=== PATIENT | female | born 1990 | race Caucasian/White ===

== ENCOUNTER 2017-04-06 22:43 | Emergency (ER) | payer MEDICAID ==
[~2017-04-06] VITALS: Ht 152.4 cm; Wt 70.8 kg
[~2017-04-06 22:43] MED LIST: QUET100T4 PO; [UNRECOGNIZED DRUG - CODE] PO
[2017-04-06] MEDS ORDERED: LURA60TA PO (23:01)
[2017-04-06] MEDS ORDERED: LAMO100T5 PO (23:01)
[2017-04-06] MEDS ORDERED: HYDR50TA13 PO (23:01)
[2017-04-06] MEDS ORDERED: CYCLOBENZAPRINE 10 MG TABLET ONE (23:29)
[2017-04-06] MEDS ORDERED: KETOROLAC 30 MG/1 ML ONE (23:29)
[2017-04-06] MEDS ORDERED: KETOROLAC 30 MG/1 ML IM ONE (23:30)
[2017-04-06] MEDS ORDERED: CYCLOBENZAPRINE 10 MG TABLET PO SCH (23:30)
[2017-04-07 00:18] VITALS: BP 131/74
== END 2017-04-07 00:20 | disposition home or self-care (01) ==
LOC: ED 04-07 00:14
DX: M62.838 Other muscle spasm (principal); R07.9 Chest pain, unspecified
CPT/HCPCS: 71020; 93005; 99284

== ENCOUNTER 2017-10-07 22:25 | Emergency (ER) | payer MEDICAID ==
[~2017-10-07] VITALS: Ht 152.4 cm; Wt 75.7 kg
[~2017-10-07 22:25] MED LIST changes: +HYDR50TA13 PO; +LAMO100T5 PO; +LURA60TA PO
[2017-10-07] MEDS ORDERED: ONDANSETRON ODT 4 MG ONE ×2 (22:42→23:31)
[2017-10-07] MEDS ORDERED: ONDANSETRON ODT 4 MG PO ONE (23:00)
[2017-10-07 23:46] VITALS: BP 113/77
[2017-10-07] MEDS ORDERED: KETOROLAC 30 MG/1 ML ONE (23:51)
[2017-10-07] MEDS ORDERED: SUMATRIPTAN 6MG/0.5ML SQ ONE (23:51)
[2017-10-07] MEDS ORDERED: PROMETHAZINE 25 MG/ML, 1ML ONE (23:51)
[2017-10-08] MEDS ORDERED: PROMETHAZINE 25 MG/ML, 1ML IM ONE
[2017-10-08] MEDS ORDERED: SUMATRIPTAN 6MG/0.5ML SQ ONE
[2017-10-08] MEDS ORDERED: KETOROLAC 30 MG/1 ML IM ONE
== END 2017-10-08 00:54 | disposition home or self-care (01) ==
LOC: ED 23:38
DX: G43.009 Migraine without aura, not intractable, without status migrainosus (principal); F31.9 Bipolar disorder, unspecified; F43.10 Post-traumatic stress disorder, unspecified; F41.1 Generalized anxiety disorder; F98.8 Other specified behavioral and emotional disorders with onset usually occurring in childhood and adolescence
CPT/HCPCS: 96372; 99284; J1885; J2550; J3030

== ENCOUNTER 2019-05-18 06:05 | Emergency (ER) | payer MEDICAID ==
[~2019-05-18] VITALS: Ht 162.6 cm; Wt 72.5 kg
[2019-05-18] MEDS ORDERED: SUMATRIPTAN 6MG/0.5ML SQ ONE ×2 (07:30→07:48)
[2019-05-18] MEDS ORDERED: DIPHENHYDRAMINE 25 MG CAPSULE PO ONE (07:30)
[2019-05-18] MEDS ORDERED: SODIUM CHLORIDE 0.9% 1,000 ML IV ONE (07:30)
[2019-05-18] MEDS ORDERED: KETOROLAC 30 MG/1 ML IVPush ONE (07:30)
[2019-05-18] MEDS ORDERED: DEXAMETHASONE 4 MG/ML, 1ML IVPush ONE (07:30)
[2019-05-18] MEDS ORDERED: DEXAMETHASONE 4 MG/ML, 5ML ONE (07:48)
[2019-05-18] MEDS ORDERED: DIPHENHYDRAMINE 25 MG CAPSULE ONE (07:48)
[2019-05-18] MEDS ORDERED: KETOROLAC 30 MG/1 ML ONE (07:48)
[2019-05-18 08:10] VITALS: BP 160/60
--- NOTE | 2019-05-18 08:17 | NUR ---
BREAK RN: PT REFUSED SUMATRIPTAN, STATING "I DON'T WANT ANY MORE NEEDLES". PT BECAME EXTREMELY ANXIOUS WHILE RN WAS ADMINISTERING MEDICATIONS, STATING THAT HER HEAD WAS BURNING, HYPERVENTILATING AND CRYING LOUDLY. RN USED THERAPUTIC AOMMUNICATION TO HELP PT CALM DOWN, INSTRUCTING USE OF DEEP BREATHING. PT REQUESTING TO TAKE HER PRESCRIBED KOLONOPIN, RN TO INFORM MD OF THIS REQUEST.
--- NOTE | 2019-05-18 08:23 | NUR ---
erp agrees for pt to take her own klonipin pt advised now pt is crying related to having a panic attack
== END 2019-05-18 09:21 | disposition home or self-care (01) ==
LOC: ED 09:14
DX: G43.009 Migraine without aura, not intractable, without status migrainosus (principal); K02.9 Dental caries, unspecified
CPT/HCPCS: 96374; 96375; 99283; J1100; J1885; Q0163; J3030

== ENCOUNTER 2019-11-04 05:01 | Emergency (ER) | payer MEDICAID ==
[~2019-11-04] VITALS: Ht 152.4 cm; Wt 67.5 kg
--- NOTE | 2019-11-04 05:30 | NUR ---
PT BELONGINGS BAGGED AND LABELED, PLACED IN LOCKER. PT UNABLE TO REMOVE NOSE RINGS AND NIPPLE RINGS ALL OTHER JEWLERY REMOVED. BOYFRIEND AT BEDSIDE
--- NOTE | 2019-11-04 05:34 | NUR ---
THIS IS A 29Y F BROUGHT IN BY HER BOYFRIEND AFTER TAKING PILLS AND DRINKING ALL NIGHT. PT STS " I JUST CAN'T KEEP BEING ME ANYMORE." PT REPORTS CUTTING HERSELF FOR THE PAST WEEK AND HAVING WORSENING "INTURSIVE THOUGHTS SAYING I NEED TO CUT AND THAT I NEED TO TAKE A BOTTLE OF PILLS BUT OVERDOSING WOULD NOT BE A FUN TIME." PT CONNECTED TO MONITORING BOYFRIEND REMAINS AT BEDSIDE. VSS. PT IN LINE OF SIGHT
--- NOTE | 2019-11-04 05:44 | NUR ---
REPORT GIVEN TO NIALL PABON.
--- NOTE | 2019-11-04 06:03 | NUR ---
Report received from CM Weaver. This RN to assume care.
[2019-11-04 06:10] LABS: BASOPHILS # (AUTO) 0.05 x10^3/uL (0-0.1); BASOPHILS % (AUTO) 1 % (0-1); EOSINOPHILS # (AUTO) 0.04 x10^3/uL (0-0.4); EOSINOPHILS % (AUTO) 1 % (1-7); LYMPHOCYTES # (AUTO) 2.14 x10^3/uL (1-3.4); LYMPHOCYTES % (AUTO) 33 % (22-44); MD NO; MEAN CORPUSCULAR HEMOGLOBIN 30.8 pg (27.0-34.8); MEAN CORPUSCULAR HGB CONC 33.5 g/dL (32.4-35.8); MEAN CORPUSCULAR VOLUME 91.8 fL (80-100); MEAN PLATELET VOLUME 7.4 fL (7.4-10.4); MONOCYTES # (AUTO) 0.49 x10^3/uL (0.2-0.8); MONOCYTES % (AUTO) 8 % (2-9); NEUTROPHILS % (AUTO) 58 % (42-75); PLATELET COUNT 288 x10^3/uL (130-400); RED BLOOD COUNT 5.04 x10^6/uL (3.82-5.3); RED CELL DISTRIBUTION WIDTH 13.1 % (9.6-15.2)
[2019-11-04 06:24] LABS: ALANINE AMINOTRANSFERASE 16 U/L (12-78); ALBUMIN 4.3 g/dL (3.4-5.0); ANION GAP 9 mmol/L (5-15); CHLORIDE 108 mmol/L (98-107); CREATININE 0.92 mg/dL (0.55-1.02)
[2019-11-04 06:27] LABS: SALICYLATE LEVEL < 1.7 mg/dL (2.8-20.0)
[2019-11-04 06:28] LABS: ALKALINE PHOSPHATASE 99 U/L (45-117); BILIRUBIN,TOTAL 0.6 mg/dL (0.2-1.0); TOTAL PROTEIN 8.2 g/dL (6.4-8.2)
--- NOTE | 2019-11-04 06:51 | NUR ---
REPORT RECEIVED FROM MARTIN PABON.
--- NOTE | 2019-11-04 06:52 | NUR ---
MEAL TRAY ORDERED AT THIS TIME.
--- NOTE | 2019-11-04 07:11 | NUR ---
BEDSIDE COMMODE AT BEDSIDE. SOCKS PROVIDED.
--- NOTE | 2019-11-04 07:19 | NUR ---
UA SENT AT THIS TIME. PT'S BOYFRIEND AT BEDSIDE.
[2019-11-04 07:21] VITALS: BP 103/68
[2019-11-04 07:48] LABS: AMPHETAMINE SCREEN, URINE Negative (Negative); BARBITURATE SCREEN, URINE Negative (Negative); BENZODIAZEPINE SCREEN, URINE Negative (Negative); CANNABINOID SCREEN, URINE Positive (Negative); COCAINE SCREEN, URINE Negative (Negative); METHADONE SCREEN, URINE Negative (Negative); OPIATE SCREEN, URINE Negative (Negative)
--- NOTE | 2019-11-04 07:52 | NUR ---
WATER/WARM BLANCKET PROVIDED AT THIS TIME.
--- NOTE | 2019-11-04 08:06 | NUR ---
MEAL TRAY PROVIDED AT THIS TIME.
--- NOTE | 2019-11-04 08:57 | NUR ---
TP RN: packet faxed to [facility], [facility], [facility], & [facility]
--- NOTE | 2019-11-04 09:38 | NUR ---
TP RN: report given to [facility] CM Magallanes pt to be transported to [facility] @ 1000
[2019-11-04] MEDS ORDERED: BUPR100T7 PO (11:50)
== END 2019-11-04 10:13 ==
LOC: ED 06:42
DX: T14.91XA Suicide attempt, initial encounter (principal); T42.4X2A Poisoning by benzodiazepines, intentional self-harm, initial encounter; F31.9 Bipolar disorder, unspecified; G43.909 Migraine, unspecified, not intractable, without status migrainosus; Z79.899 Other long term (current) drug therapy; Y92.89 Other specified places as the place of occurrence of the external cause; Y93.89 Activity, other specified; Y99.8 Other external cause status
CPT/HCPCS: 36415; 80053; 80307; 82140; 84703; 85025; 93005; 99285

== ENCOUNTER 2019-11-04 09:57 | Inpatient (IN) | payer MEDICAID ==
[~2019-11-04] VITALS: Ht 152.4 cm; Wt 66.1 kg
[2019-11-04] MEDS ORDERED: ONDANSETRON ODT 4 MG PO PRN (10:30)
[2019-11-04] MEDS ORDERED: PLEASE ENTER HEIGHT AND WEIGHT MC SCH (10:30)
[2019-11-04] MEDS ORDERED: POLYETHYLENE GLYCOL 17 GM PACKET PO PRN (10:30)
[2019-11-04] MEDS ORDERED: DOCUSATE 100 MG CAPSULE PO PRN (10:30)
[2019-11-04] MEDS ORDERED: ACETAMINOPHEN 325 MG TABLET PO PRN (10:30)
[2019-11-04] MEDS ORDERED: BISACODYL 10 MG SUPP PR PRN (10:30)
[2019-11-04 11:24] VITALS: BP 120/86
[2019-11-04] MEDS ORDERED: BUPR100T7 PO (11:50)
[2019-11-04 12:11] LABS: MICROSCOPIC AUTO
[2019-11-04 12:13] LABS: CULTURE INDICATED? NO
[2019-11-04] MEDS: FOLIC ACID 1 MG TABLET PO SCH (13:11)
[2019-11-04] MEDS: THIAMINE 100MG TABLET PO SCH ×2 (13:11→21:29)
[2019-11-04 13:40] LABS: CHOL/HDL RATIO 2.4; FREE T4 (FREE THYROXINE) 1.12 ng/dL (0.76-1.46); LDL/HDL RATIO 1.2 (0.5-3.0)
[2019-11-04] MEDS ORDERED: LORazepam 0.5MG TABLET PO PRN (14:00)
[2019-11-04 19:00] VITALS: BP 124/85
[2019-11-05 07:45] VITALS: BP 109/75
[2019-11-05] MEDS: FOLIC ACID 1 MG TABLET PO SCH (08:49)
[2019-11-05] MEDS: THIAMINE 100MG TABLET PO SCH ×2 (08:49→20:25)
[2019-11-05] MEDS: LAMOTRIGINE 100 MG TABLET PO SCH (08:50)
[2019-11-05] MEDS: BUPROPION 100 MG TABLET PO SCH (08:50)
[2019-11-05 19:37] VITALS: BP 119/85
[2019-11-06] MEDS ORDERED: IBUPROFEN 600 MG TABLET ONE (05:14)
[2019-11-06] MEDS ORDERED: IBUPROFEN 200 MG TABLET ONE (05:17)
[2019-11-06] MEDS ORDERED: IBUPROFEN 200 MG TABLET PO PRN (05:30)
[2019-11-06] MEDS ORDERED: IBUPROFEN 600 MG TABLET PO PRN (05:30)
[2019-11-06 08:00] VITALS: BP 110/72
[2019-11-06] MEDS: THIAMINE 100MG TABLET PO SCH ×2 (10:11→20:02)
[2019-11-06] MEDS: FOLIC ACID 1 MG TABLET PO SCH (10:11)
[2019-11-06] MEDS: BUPROPION 100 MG TABLET PO SCH (10:11)
[2019-11-06] MEDS: LAMOTRIGINE 100 MG TABLET PO SCH (10:11)
[2019-11-06 19:57] VITALS: BP 113/74
[2019-11-07 07:22] VITALS: BP 119/79
[2019-11-07] MEDS: LAMOTRIGINE 100 MG TABLET PO SCH (08:22)
[2019-11-07] MEDS: BUPROPION 100 MG TABLET PO SCH (08:22)
[2019-11-07] MEDS: THIAMINE 100MG TABLET PO SCH (08:22)
[2019-11-07] MEDS: FOLIC ACID 1 MG TABLET PO SCH (08:22)
== END 2019-11-07 12:20 | disposition home or self-care (01) | DRG 753 ==
LOC: 3E 10:20
PROVIDERS: ADMIT Psychiatry & Neurology Psychosomatic Medicine; ATTEND Psychiatry & Neurology Psychosomatic Medicine
DX: F31.30 Bipolar disorder, current episode depressed, mild or moderate severity, unspecified (principal); R45.851 Suicidal ideations; F12.10 Cannabis abuse, uncomplicated; F41.0 Panic disorder [episodic paroxysmal anxiety]; F41.1 Generalized anxiety disorder; F43.10 Post-traumatic stress disorder, unspecified; F60.3 Borderline personality disorder; F90.9 Attention-deficit hyperactivity disorder, unspecified type; G47.00 Insomnia, unspecified
CPT/HCPCS: 36415; 71045; 80061; 81001; 82140; 84439; 84443